=== PATIENT | female | born 1995 | race Two or more races ===

== ENCOUNTER 2024-09-19 00:58 | Emergency (ER) | payer OTHER ==
[~2024-09-19] VITALS: Ht 172.7 cm; Wt 126.4 kg
[2024-09-19] MEDS: ondansetron 4mg rapidly disintigrating tab PO ONE (03:26)
[2024-09-19] MEDS: fentaNYL/PF 50MCG/1 ML 2ML syringe IV ONE (03:27)
[2024-09-19 06:03] LABS: BASOPHILS % (AUTO) 0.3 % (0-1); EOSINOPHILS % (AUTO) 0.1 % (0-6); HEMATOCRIT 41.6 % (35.0-45.0); HEMOGLOBIN 13.7 g/dl (12.0-16.0); LYMPHOCYTES # (AUTO) 0.6 X10'3 (1.1-4.8); LYMPHOCYTES % (AUTO) 5.1 % (21-51); MEAN CORPUSCULAR HEMOGLOBIN 27.2 PG (27.0-31.0); MEAN CORPUSCULAR HGB CONC 32.9 g/dL (33.0-36.5); MEAN CORPUSCULAR VOLUME 82.7 FL (78-98); MONOCYTES # (AUTO) 0.3 X10'3 (0-0.9); MONOCYTES % (AUTO) 2.3 % (2-12); NEUTROPHILS # (AUTO) 11.6 X10'3 (1.8-7.7); NEUTROPHILS % (AUTO) 92.2 % (42-75); PLATELET COUNT 305 X10'3 (140-440); RED BLOOD COUNT 5.03 X10'6 (4.20-5.60); RED CELL DISTRIBUTION WIDTH 13.6 % (11.5-14.5); WHITE BLOOD COUNT 12.6 X10'3 (4.5-11.0)
[2024-09-19 06:07] LABS: D-DIMER 0.36 MG/L FEU (0-0.50)
[2024-09-19 06:18] LABS: ALBUMIN 3.4 G/DL (3.4-5.0); ANION GAP 10 (8-16); BLOOD UREA NITROGEN 9 MG/DL (7-18); BUN/CREATININE RATIO 12.3 (10.0-20.0); CALCIUM 8.8 MG/DL (8.5-10.1); CHLORIDE 106 MMOL/L (99-107); CREATININE 0.73 MG/DL (0.40-0.90); GLUCOSE 101 MG/DL (70-104); POTASSIUM 3.8 MMOL/L (3.5-5.1); PRO BRAIN NATRIURETIC PEPTIDE < 30 PG/ML (0-125); SODIUM 140 MMOL/L (135-145); TOTAL CARBON DIOXIDE 24.2 MMOL/L (24-32); eCRCL 116 ML/MIN; eGFR > 90 ML/MIN
[2024-09-19 08:24] LABS: BILIRUBIN,URINE SMALL (Neg); CLARITY,URINE CLEAR (Clear); COLOR,URINE YELLOW (Yellow); GLUCOSE, URINE NEGATIVE (Neg); KETONES,URINE >=80 mg/dl (Neg); LEUKOCYTE ESTERASE ,URINE NEGATIVE (Neg); NITRITES, URINE NEGATIVE (Neg); OCCULT BLOOD,URINE NEGATIVE (Neg); PH,URINE 5.5 (4.8-8.0); PROTEIN,URINE NEGATIVE (Neg)
[2024-09-19 08:47] LABS: UA COLLECTION TYPE CLN CATCH MIDSTREAM
[2024-09-19 08:50] LABS: URINE HCG NEGATIVE (NEG)
[2024-09-19 10:02] VITALS: BP 115/85; PULSE 83; RESP 14; TEMP 98.4; O2SAT 99
== END 2024-09-19 10:00 | disposition home or self-care (01) ==
LOC: ER 00:59
DX: R07.89 Other chest pain (principal)
CPT/HCPCS: 36415; 71045; 80048; 81003; 81025; 83880; 84484; 85025; 85379; 93005; 96374; 99285; J3010

== ENCOUNTER 2024-11-02 14:49 | Inpatient (IN) | payer BC, OTHER ==
[~2024-11-02] VITALS: Ht 167.6 cm; Wt 103.7 kg
[2024-11-02 15:57] LABS: BASOPHILS # (AUTO) 0.1 X10'3 (0-0.2); BASOPHILS % (AUTO) 0.2 % (0-1); EOSINOPHILS # (AUTO) 0.1 X10'3 (0-0.9); EOSINOPHILS % (AUTO) 0.4 % (0-6); HEMOGLOBIN 14.8 g/dl (12.0-16.0); LYMPHOCYTES % (AUTO) 4.1 % (21-51); MEAN CORPUSCULAR HEMOGLOBIN 27.2 PG (27.0-31.0); MEAN CORPUSCULAR HGB CONC 33.8 g/dL (33.0-36.5); MEAN CORPUSCULAR VOLUME 80.6 FL (78-98); MEAN PLATELET VOLUME 8.3 FL (7.4-10.4); MONOCYTES # (AUTO) 1.6 X10'3 (0-0.9); MONOCYTES % (AUTO) 6.3 % (2-12); NEUTROPHILS # (AUTO) 22.7 X10'3 (1.8-7.7); PLATELET COUNT 372 X10'3 (140-440); RED BLOOD COUNT 5.45 X10'6 (4.20-5.60)
[2024-11-02 16:05] LABS: WHITE BLOOD COUNT 25.6 X10'3 (4.5-11.0)
[2024-11-02 16:22] LABS: ALANINE AMINOTRANSFERASE 21 U/L (12-78); ALBUMIN 3.7 G/DL (3.4-5.0); ALBUMIN/GLOBULIN RATIO 0.8 (1.1-1.5); ALKALINE PHOSPHATASE 78 IU/L (46-116); ANION GAP 11 (8-16); ASPARTATE AMINO TRANSFERASE 18 U/L (10-37); BILIRUBIN,TOTAL 1.7 MG/DL (0.1-1.0); BLOOD UREA NITROGEN 7 MG/DL (7-18); CALCIUM 9.2 MG/DL (8.5-10.1); CHLORIDE 104 MMOL/L (99-107); GLUCOSE 131 MG/DL (70-104); LIPASE 18 U/L (16-77); POTASSIUM 4.2 MMOL/L (3.5-5.1); SODIUM 139 MMOL/L (135-145); TOTAL CARBON DIOXIDE 24.4 MMOL/L (24-32); TOTAL PROTEIN 8.1 G/DL (6.4-8.2); eCRCL 78 ML/MIN; eGFR 66 ML/MIN
[2024-11-02] MEDS: ondansetron/PF 4mg/2ml inj IV ONE (17:10)
[2024-11-02] MEDS: fentaNYL/PF 50MCG/1 ML 2ML syringe IV ONE (17:11)
[2024-11-02] MEDS: normal saline 1000ml 1,000 ML IV ONE (17:40)
[2024-11-02] MEDS: piperacillin/tazo 3.375gm/50ml 50 ML IV ONE (17:40)
[2024-11-02] MEDS ORDERED: mag hydrox/Alum hydrox/simeth 30ml oral suspension PO PRN (18:05)
[2024-11-02] MEDS ORDERED: magnesium sulf-water 2g/50mL 50 ML IV PRN (18:05)
[2024-11-02] MEDS ORDERED: magnesium hydroxide 30ml (MOM) UD suspension PO PRN (18:05)
[2024-11-02] MEDS ORDERED: morphine 2 MG/ML inj. syringe IV PRN (18:05)
[2024-11-02] MEDS ORDERED: acetaminophen 325mg tablet PO PRN (18:05)
[2024-11-02] MEDS ORDERED: magnesium sulf-water 4G/100mL 100 ML IV PRN (18:05)
[2024-11-02] MEDS ORDERED: ondansetron/PF 4mg/2ml inj IV PRN (18:05)
[2024-11-02] MEDS ORDERED: potassium Cl 20 mEq SR tablet PO PRN ×2 (18:05)
[2024-11-02] MEDS ORDERED: potassium Cl 40MEQ/1/2NS 520ml 520 ML IV PRN (18:05)
[2024-11-02] MEDS ORDERED: magnesium Cl slow-release 64mg tablet PO PRN (18:05)
--- NOTE | 2024-11-02 18:05 | RADIOLOGY REPORT ---
Procedure: US ULTRASOUND OF [facility] Study Date and Requested Time: 11/02/2024 05:16 PM History: RUQ pain Comparison: None Technique: Multiple high resolution berman-scale images obtained of the right upper quadrant of the abd omen with color Doppler for evaluation of blood flow and vascularity as indicated. Findings: Liver normal in size, measuring 16 cm in length, with homogenous echotexture and normal contours. No evidence of focal hepatic lesions, intrahepatic or extrahepatic ductal dilatation. Common bile duct m easures 0.5 cm in diameter. Sludge and gallstone within the gallbladder with borderline gallbladder wall thickening and perichole cystic free fluid. Sonographic gonzalez's sign not documented. Pancreas is unremarkable. Right kidney measures 8.2 cm in length, and partially obscured by bowel gas Partially visualized inferior vena cava unremarkable. Impression: Sludge and gallstones within the Gallbladder with borderline gallbladder wall thickening and perichol ecystic free fluid . Sonographic gonzalez's sign is not documented. Findings may be suggestive of acut e cholecystitis. The right kidney is partially obscured by bowel gas.
[2024-11-02] MEDS ORDERED: NO HOME MEDS (18:11)
[2024-11-02] MEDS: normal saline 1000ml 1,000 ML IV SCH (18:27)
[2024-11-02 18:29] LABS: BILIRUBIN,URINE MODERATE (Neg); CLARITY,URINE SLIGHTLY CLOUDY (Clear); GLUCOSE, URINE 100 mg/dl (Neg); KETONES,URINE >=80 mg/dl (Neg); LEUKOCYTE ESTERASE ,URINE NEGATIVE (Neg); OCCULT BLOOD,URINE NEGATIVE (Neg); PH,URINE 5.5 (4.8-8.0); PROTEIN,URINE 100 mg/dl (Neg)
--- NOTE | 2024-11-02 18:31 | Physician Documentation ---
History of Present Illness Chief Complaint: Abdominal Pain Stated Complaint: ABD PAIN Time Seen by MD: 16:08 HPI 29 year old female reports that she was recently worked up for this abdominal pain which she is experiencing today. She describes it as R-sided pain that woke her up last night. She had nachos for dinner last night. She describes some nausea as well. Denies fevers, urinary symptoms, diarrhea. She has had the pain on and off for the past month. Medication Reconciliation Allergies: Coded Allergies: No Known Allergies (Unverified , 11/02/24) Miscellaneous Medications Home Med List (No Home Medications), (Reported) Review of Systems All Other Systems at this time: Reviewed and Negative Physical Exam Vital Signs: RN Vital Signs have been reviewed: Yes, Source: Temporal, Heart Rate: 115, Respiratory Rate: 16, Pulse Oximetry: 100, Weight: 103.700 Physical Exam HEENT: PERRL, moist oral mucosa, EOMI Pulmonary: No respiratory distress Cardiac: tachycardic, no murmur, rub or gallop GI: nondistended, soft, +TTP RUQ + gonzalez's sign, no guarding, no rebound MSK: no deformity Skin: w/d/i, no rash Neuro: alert, nonfocal Psych: normal affect Progress Results/Orders Results/Orders Orders - ALDAIR DARLING MD Urinalysis, Cult If Indicated (11/02/24 15:20) Hcg, Ur Ql (11/02/24 15:20) Cbc/Diff (11/02/24 15:20) Man Diff (11/02/24 15:49) Ultrasound Of Abdomen (11/02/24 16:23) Piperacillin/Tazo 3.375gm/50ml (Zosyn 3. (11/02/24 16:25) Page Hospitalist (11/02/24 17:51) Ct Abdomen Pelvis (11/02/24 18:03) Completed Orders - ALDAIR DARLING MD BMP (11/02/24 15:20) Lipase (11/02/24 15:20) CMP (11/02/24 15:20) Fentanyl/Pf (Fentanyl 0.05 Mg/Ml Syringe (11/02/24 16:20) Ondansetron Inj. (Zofran 4mg/2ml Vial) (11/02/24 16:20) Normal Saline 1000ml (Sodium Chloride 10 (11/02/24 16:20) Ultrasound Of Abdomen (11/02/24 16:23) Medications Received in ER Medications (Trade) Dose Ordered Sig/Janet Route PRN Reason Start Time Stop Time Status Last Admin Dose Admin (fentaNYL 0.05 MG/ML syringe) 75 mcg ONCE ONCE IV 11/02/24 16:20 11/02/24 16:21 DC 11/02/24 17:11 75 MCG (Zofran 4mg/2ml vial) 4 mg ONCE ONCE IV 11/02/24 16:20 11/02/24 16:21 DC 11/02/24 17:10 4 MG Sodium Chloride 1,000 ml @ 1,000 mls/hr ONCE ONCE IV 11/02/24 16:20 11/02/24 17:19 DC 11/02/24 17:40 1,000 MLS/HR Piperacillin/ Tazobactam/ Dextrose 50 ml @ 12.5 mls/hr ONCE ONCE IV 11/02/24 16:25 11/02/24 20:24 11/02/24 17:40 12.5 MLS/HR Vital Signs 11/02/24 11/02/24 11/02/24 15:17 16:49 17:11 Pulse 115 Resp 20 16 B/P (MAP) Pulse Ox 100 Laboratory Tests Test 11/02/24 15:49 11/02/24 17:12 White Blood Count 25.6 *H Red Blood Count 5.45 Hemoglobin 14.8 Hematocrit 44.0 Mean Corpuscular Volume 80.6 Mean Corpuscular Hemoglobin 27.2 Mean Corpuscular Hemoglobin Concent 33.8 Red Cell Distribution Width 14.0 Platelet Count 372 Mean Platelet Volume 8.3 Neutrophils (%) (Auto) 89.0 H Lymphocytes (%) (Auto) 4.1 L Monocytes (%) (Auto) 6.3 Eosinophils (%) (Auto) 0.4 Basophils (%) (Auto) 0.2 Neutrophils # (Auto) 22.7 H Lymphocytes # (Auto) 1.0 L Monocytes # (Auto) 1.6 H Eosinophils # (Auto) 0.1 Basophils # (Auto) 0.1 CBC Comment Basophilic Stippling Sodium Level 139 Potassium Level 4.2 Chloride Level 104 Carbon Dioxide Level 24.4 Anion Gap 11 Blood Urea Nitrogen 7 Creatinine 1.00 H Estimated GFR/1.73 m2 66 BUN/Creatinine Ratio 7.0 L Glucose Level 131 H Calcium Level 9.2 Total Bilirubin 1.7 H Aspartate Amino Transf (AST/SGOT) 18 Alanine Aminotransferase (ALT/SGPT) 21 Alkaline Phosphatase 78 Total Protein 8.1 Albumin 3.7 Globulin 4.4 H Albumin/Globulin Ratio 0.8 L Lipase 18 Chemistry Comments Urine Comment Medical Decision Making Findings 29 year old female with RUQ pain and symptoms consistent with biliary pathology. CBC demonstrated elevated WBC, US demonstrated evidence of cholecystitis including stone, PCCF. Spoke with Dr. Smiley, our surgeon library information technician, and with the hospitalist service for further inpatient care and surgery. IVF, meds, antibiotics provided and patient symptomatically improved. Departure Disposition: ADMITTED INPATIENT Admitted to Inpatient Unit: to hospitalist, to surgeon Admission Level of Care: Med/Surg Impression: Primary Impression: Cholecystitis Condition: Stable Discharge Instructions: Cholecystitis Referrals: NO PRIMARY CARE PROVIDER (PCP) Education Educated: Patient, Family Educated regarding: diagnosis, treatment, prognosis, need for follow up Signature Scribe Signature: . Attestation: . ALDAIR DARLING MD November 02, 2024 18:31
[2024-11-02 18:35] LABS: COLOR,URINE DARK YELLOW (Yellow); NITRITES, URINE NEGATIVE (Neg); UA COLLECTION TYPE VOIDED
[2024-11-02 18:36] LABS: URINE HCG NEGATIVE (NEG)
[2024-11-02 18:41] LABS: BACTERIA,URINE 2+ /HPF (Neg); RBC,URINE 0-2 /HPF (0-2); SQUAMOUS EPITHELIAL CELL,UR MANY /LPF (FEW); WBC,URINE 0-4 /HPF (0-4)
[2024-11-02 18:42] LABS: MUCUS STRANDS MODERATE /LPF (Neg); RENAL CELLS, URINE FEW /HPF; TRANSITIONAL EPI CELLS,URINE MODERATE /HPF
[2024-11-02] MEDS ORDERED: iohexol 300mg/ml 100ml inj. ONE (18:56)
--- NOTE | 2024-11-02 18:56 | HISTORY AND PHYSICAL-Residence ---
History & Physical Providers to CC Resident Creating Document: BRANDEN GOMEZJOSIAH BEAR CC: CECY GARIBAY MD ~ History of Present Illness Reason for Admit\Complaint: Abdominal pain History of Present Illness Patient is a 21-year-old female with no significant medical history who came to the ED due to abdominal pain. Patient reports that she started with the abdominal pain 2 days ago, located in right upper quadrant, nonradiating, initially 3/10 in intensity, she reports that today pain increased to 8/10 in intensity, became sharp, accompanied with nausea and chills. She denies fever or vomits. Patient reports having similar pain about 2 months ago when she came to the ED and was treated medically for possible pneumonia. Allergies: Coded Allergies: No Known Allergies (Unverified , 11/02/24) Home Medications Home Medications Active Reported No Home Medications (Home Med List) Each Past Medical History Past Medical History Obesity Past Surgical History Surgical History Comment None Past Social History Smoking: Non-Smoker Alcohol Use: Rarely Drug Use: Marijuana Lives with: Spouse Lives In: Home Occupation: unemployed ROS ROS All systems were reviewed and found negative except for pertinent positives mentioned in HPI Exam Vitals: Vital Signs Date Time Temp Pulse Resp B/P (MAP) Pulse Ox O2 Delivery O2 Flow Rate FiO2 11/02/24 17:11 16 11/02/24 16:49 11/02/24 15:17 115 100 General: General: Obese habitus, awake, alert oriented to place, time, and person HEENT: No pallor present, no icterus, moist mucous membranes Neck: No masses and tenderness Resp: Unlabored. Lungs clear to auscultation bilaterally. Heart: Regular Rate and rhythm, normal S1 and S2 without murmur, rub or gallop Abdomen: Soft, Keyes positive, no organomegaly, no guarding and rigidity, bowel sounds present Neuro: No weakness in the upper and lower limb muscles, power of the muscles 5/5 bilateral upper and lower muscles, knee reflex present bilaterally. Cranial nerves intact Extremities: No cyanosis,clubbing or edema Skin: Warm and Dry. No lesions Diagnostic Data Last Recorded Lab Results: 11/02/24 1549 11/02/24 1549 Advance Care Planning Advanced Care plannin - 30 Minutes Additional Plan Patient is a 21-year-old female with no significant medical history who came to the ED due to abdominal pain. Admitted for management of acute cholecystitis. Acute cholecystitis Cholelithiasis WBC 25.6, bilirubin 1.7 Abdominal Ultrasound with findings consistent with acute cholecystitis and cholelithiasis Started on ciprofloxacin and Flagyl IV NS at 100 cc/hour Dr. Smiley consulted, poorly surgery tomorrow Pending CT abdomen and pelvis NPO after midnight Obesity Patient is on Zepbound injections. Will hold Code Status: Full code DVT prophylaxis: SCDs Analgesia/sedation: Morphine Nutrition: NPO after midnight Prognosis: Guarded Disposition: Admit to surgical unit. Possible surgery tomorrow Josiah Gomez MD Internal Medicine Resident PGY-1 Date of Service: November 02, 2024 Billing Provider: CECY GARIBAY MD, LEONARDO LUIS November 02, 2024 18:56
[2024-11-02] MEDS: docusate sod 100mg capsule PO SCH (20:00)
[2024-11-02] MEDS: K and/or MAG REPLACEMENT MC SCH (20:00)
[2024-11-02] MEDS: metroNIDAZOLE-Flagyl 500mg/NS 100 ML IV SCH (20:49)
--- NOTE | 2024-11-02 21:12 | RADIOLOGY REPORT ---
Clinical History RUQ pain Comparison None Technique: All CT scans at this medical facility are performed using dose modulation techniques as appropriate t o a performed exam including the following: Automated exposure control was utilized; adjustment of th e mA and/or kV according to patient size; and use of iterative reconstruction technique. All CT studies are reported to the Dose Index Registry of the [employer]. Contrast: omni 300 100ml Radiation Dose: CTDI (mGy): 36.36; DLP (mGy-cm): 1931.20 WANDA TOLEDO, [id number] FINDINGS: Lower chest: Unremarkable Liver: Unremarkable Gallbladder: Distended appendix with thickened mural enhancement associated with surrounding edema an d stranding of fat with 11 mm calculus seen at its neck. Pancreas: Unremarkable Spleen: Unremarkable Adrenals:Unremarkable Kidneys: Unremarkable Stomach:Unremarkable Bowel:Unremarkable. Normal appendix Urinary bladder:Unremarkable Reproductive organs:No pelvic masses Peritoneum, retroperitoneum, lymphadenopathy:Unremarkable Vascular structures:Unremarkable Abdominal wall: Small uncomplicated fat-containing umbilical hernia Musculoskeletal:No acute osseous abnormality IMPRESSION: Acute cholecystitis This report was electronically signed by Drea Negro MD on 11/02/2024 9:08:55 PM.
[2024-11-02 22:02] LABS: PLATELET ESTIMATE NORMAL; TOTAL CELLS COUNTED 100
[2024-11-02] MEDS: morphine 2 MG/ML inj. syringe IV PRN (23:01)
[2024-11-02] MEDS: ciprofloxacin lact 400MG/200ML 200 ML IV SCH (23:02)
[2024-11-02 23:33] VITALS: BP 126/80; PULSE 120; RESP 20; TEMP 98.4; O2SAT 97
[2024-11-03] VITALS (24 sets, daily range): BP systolic 113–148; BP diastolic 66–88; PULSE 81–99; RESP 14–24; TEMP 97.4–98.6; O2SAT 92–99
[2024-11-03 04:36] LABS: BASOPHILS % (AUTO) 0.2 % (0-1); EOSINOPHILS # (AUTO) 0.3 X10'3 (0-0.9); EOSINOPHILS % (AUTO) 1.7 % (0-6); HEMATOCRIT 38.8 % (35.0-45.0); LYMPHOCYTES # (AUTO) 1.2 X10'3 (1.1-4.8); LYMPHOCYTES % (AUTO) 7.7 % (21-51); MEAN CORPUSCULAR HEMOGLOBIN 27.3 PG (27.0-31.0); MEAN CORPUSCULAR HGB CONC 33.6 g/dL (33.0-36.5); MEAN CORPUSCULAR VOLUME 81.4 FL (78-98); MEAN PLATELET VOLUME 8.3 FL (7.4-10.4); MONOCYTES # (AUTO) 1.5 X10'3 (0-0.9); MONOCYTES % (AUTO) 9.5 % (2-12); NEUTROPHILS # (AUTO) 12.6 X10'3 (1.8-7.7); NEUTROPHILS % (AUTO) 80.9 % (42-75); PLATELET COUNT 295 X10'3 (140-440); RED BLOOD COUNT 4.77 X10'6 (4.20-5.60); RED CELL DISTRIBUTION WIDTH 13.9 % (11.5-14.5); WHITE BLOOD COUNT 15.6 X10'3 (4.5-11.0)
[2024-11-03 05:07] LABS: ALANINE AMINOTRANSFERASE 21 U/L (12-78); ALBUMIN 2.9 G/DL (3.4-5.0); ALBUMIN/GLOBULIN RATIO 0.8 (1.1-1.5); ALKALINE PHOSPHATASE 70 IU/L (46-116); ANION GAP 11 (8-16); ASPARTATE AMINO TRANSFERASE 9 U/L (10-37); BILIRUBIN,TOTAL 1.9 MG/DL (0.1-1.0); BLOOD UREA NITROGEN 10 MG/DL (7-18); BUN/CREATININE RATIO 12.5 (10.0-20.0); CALCIUM 8.4 MG/DL (8.5-10.1); CHLORIDE 103 MMOL/L (99-107); GLUCOSE 100 MG/DL (70-104); MAGNESIUM 2.1 MG/DL (1.5-2.4); POTASSIUM 3.7 MMOL/L (3.5-5.1); SODIUM 137 MMOL/L (135-145); TOTAL CARBON DIOXIDE 23.2 MMOL/L (24-32); TOTAL PROTEIN 6.6 G/DL (6.4-8.2); eCRCL 98 ML/MIN; eGFR 85 ML/MIN
[2024-11-03] MEDS ORDERED: proCHLORperazine 10 MG/2 ml inj IV PRN (10:30)
[2024-11-03] MEDS ORDERED: meperidine/PF 25mg/ml syringe IV PRN ×3 (10:30)
[2024-11-03] MEDS ORDERED: labetalol 20mg/4ml (5mg/ml) syringe IV PRN (10:30)
[2024-11-03] MEDS ORDERED: enalaprilat 1.25mg/ml 2ml vial IV PRN (10:30)
[2024-11-03] MEDS ORDERED: ondansetron/PF 4mg/2ml inj IV PRN ×2 (10:30→14:20)
[2024-11-03] MEDS ORDERED: morphine 4 MG/ML inj SYRINge IV PRN (10:30)
[2024-11-03 11:25] LABS: INR 1.1 INR; PROTHROMBIN TIME 11.4 SECONDS (9.0-12.0)
[2024-11-03] MEDS: ringers solution, lacted 1,000 ML IV SCH ×2 (11:40→12:01)
--- NOTE | 2024-11-03 11:54 | PROGRESS NOTE- Residence ---
Progress Note - Resident Providers to CC Resident Creating Document: DOMINIC MCINTYRE CC: CECY GARIBAY MD ~ Antibiotic Timeout Antibiotic Ordered?: Yes Subjective Patient was seen at bedside today. She still has some abdominal discomfort, but not significant pain. She is NPO and denies any nausea or vomiting. She also denies any fevers or chills Objective Vital Signs Date Time Temp Pulse Resp B/P (MAP) Pulse Ox O2 Delivery O2 Flow Rate FiO2 11/03/24 10:00 98.6 84 20 141/80 (100) 97 Room Air 11/03/24 08:00 0.0 Result Diagram: 11/03/2440211/03/24402 General: Obese habitus, awake, alert oriented to place, time, and person HEENT: No pallor present, no icterus, moist mucous membranes Neck: No masses and tenderness Resp: Unlabored. Lungs clear to auscultation bilaterally. Heart: Regular Rate and rhythm, normal S1 and S2 without murmur, rub or gallop Abdomen: Soft, Keyes positive, no organomegaly, no guarding and rigidity, bowel sounds present Neuro: No weakness in the upper and lower limb muscles, power of the muscles 5/5 bilateral upper and lower muscles, knee reflex present bilaterally. Cranial nerves intact Extremities: No cyanosis,clubbing or edema Skin: Warm and Dry. No lesions Coagulation Studies Laboratory Tests Test 11/03/24 10:43 Prothrombin Time 11.4 SECONDS (9.0-12.0) INR International Normalized Ratio 1.1 INR Coagulation Comments Assessment Assessment Patient is a 21-year-old female with no significant medical history who came to the ED due to abdominal pain. Admitted for management of acute cholecystitis. Plan Plan Acute calculus cholecystitis WBC down to 15.6, bilirubin 1.[address] with findings consistent with acute cholecystitis and cholelithiasis Continue ciprofloxacin and Flagyl, day 2 IV NS at 100 cc/hour Dr. Smiley consulted, undergoing cholecystectomy today Continue NPO Obesity BMI 36.9 Patient is on Zepbound injections. Will hold Code Status: Full code DVT prophylaxis: SCDs Analgesia/sedation: Morphine Nutrition: NPO after midnight Prognosis: Guarded Disposition: Continue care in surgical unit. Cholecystectomy today by Dr. Sherice Portillo MD Internal Medicine Resident PGY-1 Date of Service: November 03, 2024 Billing Provider: CECY GARIBAY MD, LEONARDO LUIS November 03, 2024 11:54
[2024-11-03] MEDS: famotidine 20mg tablet PO ONE ×2 (12:01→12:02)
--- NOTE | 2024-11-03 12:02 | PROGRESS NOTE ---
Progress Note ID Providers to CC ~ Progress Note Progress Note: pt seen and examined-findings consistent with cholelithiasis/cholecystitis-pt needs robo jonn-possible open-discussed procedure including risks/benefits/alternatives DARLENE PRINGLE MD November 03, 2024 12:02
[2024-11-03] MEDS ORDERED: TIRZ2.5P3 (12:09)
[2024-11-03] MEDS ORDERED: sevoflurane 250ml liquid IH ONE (12:32)
[2024-11-03] MEDS ORDERED: midazolam 1 mg/ML 2ml injection ONE (12:40)
[2024-11-03] MEDS ORDERED: fentaNYL /PF 50mcg/ml 5ml ampule ONE (12:42)
[2024-11-03] MEDS ORDERED: propofol inj 20 ML IV ONE (12:42)
[2024-11-03] MEDS ORDERED: LIDOcaine 2% (20mg/ml) 5ml vial ONE (12:42)
[2024-11-03] MEDS ORDERED: rocuronium 10mg/ml inj IV ONE (13:07)
[2024-11-03] MEDS ORDERED: dexamethasone sod phosphate 4mg/ml inj. ONE (13:07)
[2024-11-03] MEDS ORDERED: ketorolac trometh 30MG/ML vial 30 MG/ML VIAL ONE (13:07)
--- NOTE | 2024-11-03 14:15 | OPERATIVE REPORT ---
Operative Report Providers to CC ~ Date of Procedure: November 03, 2024 Pre-Operative Diagnosis: CHOLELITHIASIS/cholecystitis Post-Operative Diagnosis SAME as PRE-Op Procedure Performed RIGO DA SILVA Surgeon: YARY Supervisor Pyrotechnic Loading NONE Anesthesiologist: Rashid Garcia Type of Anesthesia: General Findings: SEVERE CHOLECYSTITIS Estimated Blood Loss: 100 ML Specimen Removed: DARLENE ANNA MD November 03, 2024 14:15
[2024-11-03] MEDS ORDERED: ketorolac trometh 30MG/ML vial 30 MG/ML VIAL IV PRN (14:20)
[2024-11-03] MEDS ORDERED: naloxone 0.4 mg/ml inj IV PRN (14:20)
--- NOTE | 2024-11-03 14:47 | OPERATIVE REPORT ---
DATE OF SURGERY: 11/03/2024 DICTATING PHYSICIAN: Michael Smiley MD PREOPERATIVE DIAGNOSIS: Cholelithiasis, cholecystitis. POSTOPERATIVE DIAGNOSIS: Cholelithiasis, cholecystitis. PROCEDURE PERFORMED: Robotic cholecystectomy. SURGEON: Michael Smiley MD SCHEDULE HANGER: None. ANESTHESIA: General/Dr. Garcia. DRAINS: A #19 Clyde. INDICATIONS FOR OPERATION: A 29-year-old female with a 1-2 month history of intermittent right upper quadrant symptoms, found to have severe cholecystitis with cholelithiasis and taken to surgery for robotic cholecystectomy. INTRAOPERATIVE FINDINGS: Severe cholecystitis. DESCRIPTION OF PROCEDURE: The patient was placed supine on the operating table. After induction of general anesthesia and placement of endotracheal tube, the abdomen was prepped and draped. A subumbilical incision was then made and Pravin port placed using open technique and pneumoperitoneum was begun by insufflation of CO2. Additional ports were placed in left lower quadrant and left lower abdomen. Robot was then brought to the field. Camera port docked. Camera placed, camera targeted. Additional ports were then docked and instruments placed. Abdomen was explored. Omentum was mobilized off underlying gallbladder. He had severe cholecystitis. Attention was then turned to the dior hepatis. Cystic duct identified, isolated, ligated, clipped and divided the cystic artery after tedious dissection in the dior hepatis. The gallbladder was mobilized off the gallbladder fossa using electrocautery. Hemostasis was found to be adequate. Robotic instruments were removed, robot undocked from the field. Gallbladder was placed in Endobag using laparoscope. Abdomen was then copiously irrigated with large of antibiotic-containing solution. A #19 Clyde drain was then placed through a port incision directly in the gallbladder fossa. Ports were removed under laparoscopic vision with active bleeding. Final port and camera were withdrawn. Pneumoperitoneum was evacuated. Wounds were closed in layers. Skin was then closed with subcuticular stitch. Dressing applied. The patient was transferred to recovery in stable condition. Michael Smiley MD TID: [id number] RECEIPT: [id number] KB/ERWIN
[2024-11-03] MEDS: acetaminophen 1,000mg/100ml IV 100 ML IV ONE (15:04)
--- NOTE | 2024-11-03 15:09 | CONSULTATION ---
DATE OF CONSULTATION: 11/03/2024 DICTATING PHYSICIAN: Michael Smiley MD REASON FOR CONSULTATION: Evaluation for abdominal pain. HISTORY OF PRESENT ILLNESS: The patient is a 29-year-old female with a history of cholelithiasis, today reports abdominal pain. Workup revealed cholelithiasis and cholecystitis. Surgical evaluation was requested. Upon further questioning, the patient complains of persistent symptoms for the last 2 months. PAST MEDICAL HISTORY: Unremarkable. PAST SURGICAL HISTORY: Unremarkable. HOME MEDICATIONS: None. ALLERGIES: None. SOCIAL HISTORY: Denies tobacco or alcohol use. REVIEW OF SYSTEMS: See H and P. PHYSICAL EXAMINATION: GENERAL: This is a well-nourished female, no distress. VITAL SIGNS: Unremarkable. HEART: Regular rate and rhythm. LUNGS: Clear to auscultation. ABDOMEN: Shows right upper quadrant tenderness. EXTREMITIES: Unremarkable. NEUROLOGIC: Unremarkable. LABORATORY DATA: Include WBC of 15, hematocrit of 38, platelet count of 295. Chemistries include total bilirubin of 1.9. ALT, AST, alkaline phosphatase unremarkable. Lipase 18. IMAGING STUDIES: CT of the abdomen and pelvis reveals cholelithiasis with cholecystitis. IMPRESSION: Cholelithiasis with cholecystitis. PLAN: * Admit. * Hydrate. * IV antibiotics. * Robotic cholecystectomy, possible open Michael Smiley MD TID: [id number] RECEIPT: [id number] SAMMY/VUN
[2024-11-03] MEDS: morphine 2 MG/ML inj. syringe IV PRN (15:11)
[2024-11-04] MEDS: HYDROcodone/acetaminophen 5mg/325mg tablet PO PRN (01:36)
[2024-11-04 02:00] VITALS: BP 126/63; PULSE 103; RESP 13; TEMP 98.6; O2SAT 98
[2024-11-04 04:16] LABS: BASOPHILS % (AUTO) 0 % (0-1); EOSINOPHILS % (AUTO) 0 % (0-6); HEMATOCRIT 35.2 % (35.0-45.0); HEMOGLOBIN 11.6 g/dl (12.0-16.0); LYMPHOCYTES # (AUTO) 0.5 X10'3 (1.1-4.8); LYMPHOCYTES % (AUTO) 3.9 % (21-51); MEAN CORPUSCULAR HEMOGLOBIN 26.8 PG (27.0-31.0); MEAN CORPUSCULAR VOLUME 81.4 FL (78-98); MEAN PLATELET VOLUME 8.3 FL (7.4-10.4); MONOCYTES # (AUTO) 0.7 X10'3 (0-0.9); MONOCYTES % (AUTO) 5.4 % (2-12); NEUTROPHILS # (AUTO) 12.2 X10'3 (1.8-7.7); NEUTROPHILS % (AUTO) 90.7 % (42-75); PLATELET COUNT 303 X10'3 (140-440); RED BLOOD COUNT 4.32 X10'6 (4.20-5.60); WHITE BLOOD COUNT 13.4 X10'3 (4.5-11.0)
[2024-11-04 04:33] LABS: ALANINE AMINOTRANSFERASE 71 U/L (12-78); ALBUMIN 2.6 G/DL (3.4-5.0); ALBUMIN/GLOBULIN RATIO 0.7 (1.1-1.5); ALKALINE PHOSPHATASE 114 IU/L (46-116); ANION GAP 11 (8-16); ASPARTATE AMINO TRANSFERASE 51 U/L (10-37); BILIRUBIN,TOTAL 1.3 MG/DL (0.1-1.0); BLOOD UREA NITROGEN 8 MG/DL (7-18); BUN/CREATININE RATIO 10.5 (10.0-20.0); CALCIUM 8.5 MG/DL (8.5-10.1); CHLORIDE 104 MMOL/L (99-107); CREATININE 0.76 MG/DL (0.40-0.90); GLUCOSE 118 MG/DL (70-104); MAGNESIUM 2.1 MG/DL (1.5-2.4); POTASSIUM 4.4 MMOL/L (3.5-5.1); SODIUM 137 MMOL/L (135-145); TOTAL CARBON DIOXIDE 22.2 MMOL/L (24-32); TOTAL PROTEIN 6.3 G/DL (6.4-8.2); eCRCL 103 ML/MIN; eGFR > 90 ML/MIN
[2024-11-04 06:00] VITALS: BP 117/70; PULSE 89; RESP 13; TEMP 97.6; O2SAT 95
[2024-11-04 07:10] VITALS: RESP 13; O2SAT 95
[2024-11-04 10:00] VITALS: BP 114/71; PULSE 89; RESP 12; TEMP 97.4; O2SAT 93
--- NOTE | 2024-11-04 16:00 | PROGRESS NOTE- Residence ---
Progress Note - Resident Providers to CC Resident Creating Document: DOMINIC MCINTYRE CC: CECY GARIBAY MD ~ Antibiotic Timeout Antibiotic Ordered?: Yes Subjective Patient was seen at bedside today. She underwent surgery yesterday and reports that she is recovering well. She is sore but not in significant pain, she has been able to get up and walk. She has not passed gas yet but she is tolerating diet without issues Objective Vital Signs Date Time Temp Pulse Resp B/P (MAP) Pulse Ox O2 Delivery O2 Flow Rate FiO2 11/04/24 12:25 18 11/04/24 10:00 97.4 89 114/71 (85) 93 Room Air 11/03/24 15:42 0.0 Result Diagram: 11/04/245 11/04/24 034 General: Obese habitus, awake, alert oriented to place, time, and person HEENT: No pallor present, no icterus, moist mucous membranes Neck: No masses and tenderness Resp: Unlabored. Lungs clear to auscultation bilaterally. Heart: Regular Rate and rhythm, normal S1 and S2 without murmur, rub or gallop Abdomen: Surgical scars covered with clean dressing. Soft and diffusely tender, no organomegaly, no guarding and rigidity, bowel sounds present Neuro: No weakness in the upper and lower limb muscles, power of the muscles 5/5 bilateral upper and lower muscles, knee reflex present bilaterally. Cranial nerves intact Extremities: No cyanosis,clubbing or edema Skin: Warm and Dry. No lesions Coagulation Studies Laboratory Tests Test 11/03/24 10:43 Prothrombin Time 11.4 SECONDS (9.0-12.0) INR International Normalized Ratio 1.1 INR Coagulation Comments Assessment Assessment Patient is a 21-year-old female with no significant medical history who came to the ED due to abdominal pain. Admitted for management of acute cholecystitis. Plan Plan Acute calculus cholecystitis s/p robo jonn, D1 Recovering well Continue ciprofloxacin and Flagyl, day 3 Continue pain management IV NS at 75 cc/hour Tolerating clear liquids Continue recommendations per Dr. Smiley Obesity BMI 36.9 Patient is on Zepbound injections. Will hold Code Status: Full code DVT prophylaxis: SCDs Analgesia/sedation: Morphine Nutrition: NPO after midnight Prognosis: Guarded Disposition: Continue care in surgical unit. Continue recommendations by Dr. Sherice Portillo, MD Internal Medicine Resident PGY-1 Date of Service: November 04, 2024 Billing Provider: CECY GARIBAY MD, LEONARDO LUIS November 04, 2024 16:00
[2024-11-04] MEDS ORDERED: METR375C2 PO (17:18)
[2024-11-04] MEDS ORDERED: LACT1CAP26 PO (17:18)
[2024-11-04] MEDS ORDERED: CIPR750T14 PO (17:18)
[2024-11-04 18:00] VITALS: BP 111/72; PULSE 67; RESP 12; TEMP 98.1; O2SAT 97
[2024-11-04] MEDS ORDERED: IBUP-1985 PO (18:09)
--- NOTE | 2024-11-04 18:13 | DISCHARGE SUMMARY-Residence ---
Discharge Summary Providers to CC Resident Creating Document: BRANDEN GOMEZDOMINIC BEAR CC: CECY GARIBAY MD ~ Discharge Summary Admission Diagnosis: CHOLELITHIASIS/cholecystitis Hospital Course DATE OF ADMISSION: 11/02/2024 DATE OF DISCHARGE: 11/04/2024 Discharge Diagnosis\Comment: Acute calculus cholecystitis s/p robo jonn Obesity Operations\Procedures: Robotic cholecystectomy Consultants: Dr. Smiley Complications: None Condition on DC: Stable New Medications: Ibuprofen (Ibuprofen) 600 Mg Tablet 1 TAB PO Q8H for pain for 10 Days, #30 TAB 0 Refills with food Lactobacillus Rhamnosus (Culturelle) 10 Billion Cell Capsule 1 CAP PO DAILY for 30 Days, #30 CAP 0 Refills Ciprofloxacin* (Cipro 750MG tablet*) 750 Mg Tab 1 TAB PO Q12H for 3 Days, #6 TAB Metronidazole (Flagyl) 375 Mg Capsule 1 CAP PO Q12H for 3 Days, #6 CAP 0 Refills Continued Medications: Tirzepatide (Zepbound) Unknown Strength Pen.injctr Unknown Dose Discharge Summary: Patient was admitted with the following HPI: Patient is a 21-year-old female with no significant medical history who came to the ED due to abdominal pain. Patient reports that she started with the abdominal pain 2 days ago, located in right upper quadrant, nonradiating, initially 3/10 in intensity, she reports that today pain increased to 8/10 in intensity, became sharp, accompanied with nausea and chills. She denies fever or vomits. Patient reports having similar pain about 2 months ago when she came to the ED and was treated medically for possible pneumonia. Hospital course: Patient was admitted with diagnosis of acute cholecystitis. She was started on IV ciprofloxacin and Flagyl. On hospital day 2, patient underwent robotic cholecystectomy without complications. Today, patient was tolerating diet, passing gas and able to walk without significant pain. Patient will be discharged home today. Laboratory Tests Test 11/03/24 04:03 11/03/24 10:43 11/03/24 10:45 11/04/24 03:45 White Blood Count 15.6 X10'3 13.4 X10'3 Red Blood Count 4.77 X10'6 4.32 X10'6 Hemoglobin 13.0 g/dl 11.6 g/dl Hematocrit 38.8 % 35.2 % Mean Corpuscular Volume 81.4 FL 81.4 FL Mean Corpuscular Hemoglobin 27.3 PG 26.8 PG Mean Corpuscular Hemoglobin Concent 33.6 g/dL 33.0 g/dL Red Cell Distribution Width 13.9 % 14.0 % Platelet Count 295 X10'3 303 X10'3 Mean Platelet Volume 8.3 FL 8.3 FL Neutrophils (%) (Auto) 80.9 % 90.7 % Lymphocytes (%) (Auto) 7.7 % 3.9 % Monocytes (%) (Auto) 9.5 % 5.4 % Eosinophils (%) (Auto) 1.7 % 0 % Basophils (%) (Auto) 0.2 % 0 % Neutrophils # (Auto) 12.6 X10'3 12.2 X10'3 Lymphocytes # (Auto) 1.2 X10'3 0.5 X10'3 Monocytes # (Auto) 1.5 X10'3 0.7 X10'3 Eosinophils # (Auto) 0.3 X10'3 0.0 X10'3 Basophils # (Auto) 0.0 X10'3 0.0 X10'3 CBC Comment Sodium Level 137 MMOL/L 137 MMOL/L Potassium Level 3.7 MMOL/L 4.4 MMOL/L Chloride Level 103 MMOL/L 104 MMOL/L Carbon Dioxide Level 23.2 MMOL/L 22.2 MMOL/L Anion Gap 11 11 Blood Urea Nitrogen 10 MG/DL 8 MG/DL Creatinine 0.80 MG/DL 0.76 MG/DL Estimated GFR/1.73 m2 85 ML/MIN > 90 ML/MIN BUN/Creatinine Ratio 12.5 10.5 Glucose Level 100 MG/DL 118 MG/DL Calcium Level 8.4 MG/DL 8.5 MG/DL Magnesium Level 2.1 MG/DL 2.1 MG/DL Total Bilirubin 1.9 MG/DL 1.3 MG/DL Aspartate Amino Transf (AST/SGOT) 9 U/L 51 U/L Alanine Aminotransferase (ALT/SGPT) 21 U/L 71 U/L Alkaline Phosphatase 70 IU/L 114 IU/L Total Protein 6.6 G/DL 6.3 G/DL Albumin 2.9 G/DL 2.6 G/DL Globulin 3.7 G/DL 3.7 G/DL Albumin/Globulin Ratio 0.8 0.7 Procalcitonin 0.13 NG/ML Chemistry Comments Prothrombin Time 11.4 SECONDS INR International Normalized Ratio 1.1 INR Coagulation Comments Glucometer 108 mg/dl Imaging: CT abdomen: Acute cholecystitis Abdominal ultrasound: Sludge and gallstones within the Gallbladder with borderline gallbladder wall thickening and pericholecystic free fluid . Sonographic gonzalez's sign is not documented. Findings may be suggestive of acute cholecystitis. Discharge physical exam: Vital Signs Date Time Temp Pulse Resp B/P (MAP) Pulse Ox O2 Delivery O2 Flow Rate FiO2 11/04/24 16:58 16 11/04/24 10:00 97.4 89 114/71 (85) 93 Room Air 11/03/24 15:42 0.0 General: Obese habitus, awake, alert oriented to place, time, and person HEENT: No pallor present, no icterus, moist mucous membranes Neck: No masses and tenderness Resp: Unlabored. Lungs clear to auscultation bilaterally. Heart: Regular Rate and rhythm, normal S1 and S2 without murmur, rub or gallop Abdomen: Surgical scars covered with clean dressing. Soft and diffusely tender, no organomegaly, no guarding and rigidity, bowel sounds present Neuro: No weakness in the upper and lower limb muscles, power of the muscles 5/5 bilateral upper and lower muscles, knee reflex present bilaterally. Cranial nerves intact Extremities: No cyanosis,clubbing or edema Skin: Warm and Dry. No lesions Patient will be discharged home with the following recommendations: Please complete all medications as prescribed Follow up with your PCP within two weeks Follow up with Dr Smiley Please return to the ED if any increasing abdominal pain, nausea/vomiting, fever, or any other concerning symptoms *Problems/Diagnosis: (1) Cholecystitis Status: Acute Total Time Spent on D/C: > 30 Minutes Date of Service: November 04, 2024 Billing Provider: CECY GARIBAY MD, LEONARDO LUIS November 04, 2024 18:09
--- NOTE | 2024-11-04 18:35 | PROGRESS NOTE ---
Progress Note ID Providers to CC ~ Progress Note Progress Note: doing well/home in am DARLENE PRINGLE MD November 04, 2024 18:35
[2024-11-04 19:00] VITALS: RESP 12; O2SAT 97
== END 2024-11-04 19:35 | disposition home or self-care (01) | DRG 419 ==
LOC: ER 14:49 → ED HOLD 18:09 → SUR 3N 23:30
PROVIDERS: ADMIT Family Medicine; ATTEND Family Medicine
PROC: 8E0W4CZ Robotic Assisted Procedure of Trunk Region, Percutaneous Endoscopic Approach (ICD-10-PCS; 2024-11-03)
PROC: 0FT44ZZ Resection of Gallbladder, Percutaneous Endoscopic Approach (ICD-10-PCS; principal; 2024-11-03 12:32)
DX: K80.00 Calculus of gallbladder with acute cholecystitis without obstruction (principal); E66.9 Obesity, unspecified; Z68.36 Body mass index [BMI] 36.0-36.9, adult
CPT/HCPCS: 96365; 96375; 99285; Z7506; Z7508; 36415; 74177; 76700; 80053; 81001; 81025; 82948; 83690; 83735; 84145; 85007; 85025; 85610; 87081; A4215; A4618; A6212; A6258; A6402; A7000; G0378; J0131; J0744; J1100; J1885; J2003; J2250; J2270; J2405; J2543; J2704; J2710; J3010; J3490; J7030; J7120; Q9967